=== PATIENT | male | born 1990 | race Caucasian/White ===

== ENCOUNTER 2022-05-26 15:01 | Emergency (ER) | payer SELFPAY ==
[2022-05-26] MEDS ORDERED: Sodium Chloride 0.9% 2.5 ML Syringe FLUSH PRN (16:06)
[2022-05-26] MEDS ORDERED: Sodium Chloride 0.9% 10 ML Syringe FLUSH PRN (16:06)
[2022-05-26 17:39] LABS: CARBON DIOXIDE,CO2 26.1 mmol/L (21.0-32.0)
[2022-05-26 18:04] LABS: CORONAVIRUS COVID-19 NAA NEGATIVE (NEGATIVE); INFLUENZA A NAA NEGATIVE (NEGATIVE); INFLUENZA B NAA NEGATIVE (NEGATIVE)
== END 2022-05-26 18:47 | disposition home or self-care (01) ==
LOC: MW.ED 15:01
DX: E55.9 Vitamin D deficiency, unspecified (principal); Z20.822 Contact with and (suspected) exposure to COVID-19
CPT/HCPCS: 0240U; 36415; 71045; 80053; 81001; 82306; 84484; 85025; 87086; 93005; 99284; J3490; 93010; 99283

== ENCOUNTER 2022-09-22 11:22 | Day surgery (SDC) | payer SELFPAY ==
[~2022-09-22 11:22] MED LIST: Lactated Ringers 1,000 ML IV SCH
[2022-09-22] MEDS ORDERED: Propofol 200 MG/20 ML SDV ONE ×2 (12:51→13:07)
[2022-09-22] MEDS ORDERED: Lidocaine 2% 5 ML SDV ONE (12:51)
[2022-09-22] MEDS ORDERED: Dexamethasone 4 MG/ML 5 ML MDV ONE (13:00)
[2022-09-22] MEDS ORDERED: Lactated Ringers 1,000 ML IV SCH (14:00)
== END 2022-09-22 14:50 | disposition home or self-care (01) ==
LOC: MW.SDS 11:22
PROVIDERS: ATTEND Surgery
DX: K29.50 Unspecified chronic gastritis without bleeding (principal); K44.9 Diaphragmatic hernia without obstruction or gangrene; K20.90 Esophagitis, unspecified without bleeding; K52.9 Noninfective gastroenteritis and colitis, unspecified; F41.9 Anxiety disorder, unspecified; F17.290 Nicotine dependence, other tobacco product, uncomplicated; Z76.89 Persons encountering health services in other specified circumstances; Z91.012 Allergy to eggs
CPT/HCPCS: 43239; 45380; J1100; J2704; J7120; 00813; J3490

== ENCOUNTER 2022-09-29 11:58 | Emergency (ER) | payer SELFPAY ==
[2022-09-29] MEDS ORDERED: Sodium Chloride 0.9% 2.5 ML Syringe FLUSH PRN (13:22)
[2022-09-29] MEDS ORDERED: Sodium Chloride 0.9% 10 ML Syringe FLUSH PRN (13:22)
[2022-09-29 13:42] LABS: BASOPHILS PERCENT AUTO 0.4 % (0.0-1.5); EOSINOPHILS ABSOLUTE AUTO 0.4 K/uL (0.0-0.7); EOSINOPHILS PERCENT AUTO 5.3 % (0.0-7.0); HEMATOCRIT 44.1 % (38.0-50.0); HEMOGLOBIN 15.1 g/dL (13.0-17.0); LYMPHOCYTES ABSOLUTE AUTO 2.4 K/uL (0.6-2.4); LYMPHOCYTES PERCENT AUTO 35.4 % (16.0-40.0); MEAN CORPUSCULAR HEMOGLOBIN 28.4 pg (27.0-32.0); MEAN CORPUSCULAR HGB CONC 34.2 g/dL (31.0-37.0); MEAN CORPUSCULAR VOLUME 83.1 fL (80.0-98.0); MONOCYTES ABSOLUTE AUTO 0.6 K/uL (0.0-0.8); MONOCYTES PERCENT AUTO 8.7 % (0.0-15.0); NEUTROPHILS ABSOLUTE AUTO 3.4 K/uL (1.4-5.7); NEUTROPHILS PERCENT AUTO 50.2 % (48.0-80.0); NRBC ABSOLUTE 0 K/uL; PLATELET COUNT,PLT 194 K/uL (150-400); RED BLOOD CELL COUNT 5.31 M/uL (4.50-5.90); WHITE BLOOD CELL COUNT,WBC 6.78 K/uL (4.0-11.0)
[2022-09-29 13:58] LABS: INR 1.03 (0.86-1.11)
[2022-09-29 14:04] LABS: A/G RATIO 1.4 (0.9-1.6); ALBUMIN 4.2 g/dL (3.4-5.0); BILIRUBIN TOTAL 0.4 mg/dL (0.2-1.0); CALCIUM 8.6 mg/dL (8.5-10.1); CARBON DIOXIDE,CO2 27.7 mmol/L (21.0-32.0); CREATININE 0.9 mg/dL (0.8-1.3); EST CRCL DRUG DOSING (CG) 123.92 mL/min; PROTEIN TOTAL,TP 7.3 g/dL (6.4-8.2)
[2022-09-29] MEDS ORDERED: Metoclopramide 10 MG/2 ML SDV IVPUSH ONE (14:43)
[2022-09-29] MEDS ORDERED: Sodium Chloride 0.9% 500 ML IV SCH (14:45)
[2022-09-29] MEDS ORDERED: Iopamidol 755 Mg/ML 100 ML Bottle IVPUSH ONE (14:46)
== END 2022-09-29 16:40 | disposition home or self-care (01) ==
LOC: MW.ED 11:58
DX: R51.9 Headache, unspecified (principal); R42 Dizziness and giddiness; Z91.012 Allergy to eggs
CPT/HCPCS: 36415; 70450; 70496; 70498; 70551; 80053; 84484; 85025; 85610; 93005; 96374; 99284; J2765; J3490; J7040; Q9967; 93010